=== PATIENT | female | born 1970 | race Caucasian/White ===

== ENCOUNTER 2019-10-15 00:28 | Outpatient (REF) | payer SELFPAY ==
[2019-10-15 00:55] LABS: Chol HDL Ratio 4.13 mg/dL (0.0-4.40); Cholesterol 256 mg/dL (0-200); Glucose 108 mg/dL (65-115); HDL Cholesterol 62 mg/dL (60-100); LDL Cholesterol Calculated 178 mg/dL (50-129); LDL HDL Ratio 2.87 RATIO (0.00-3.22); Triglycerides 78 mg/dL (0-150)
[2019-10-15 03:14] LABS: Estmated Average Glucose 140; Hemoglobin A1C 6.5 % (4.0-6.0)
== END 2019-10-15 00:29 | disposition home or self-care (01) ==
LOC: LAB 00:28
DX: Z01.89 Encounter for other specified special examinations (principal)
CPT/HCPCS: 36415; 80061; 82947; 83036

== ENCOUNTER 2022-04-12 05:24 | Emergency (ER) | payer OTHER, SELFPAY ==
[2022-04-12 05:40] VITALS: BP 154/79; PULSE 80; RESP 16; TEMP 37.3; O2SAT 99
--- NOTE | 2022-04-12 05:53 | W.ED.EXTPRO ---
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 Associated symptoms: Deny chest pain, fever(s) or rash Review of Systems Const: Denies: fever(s), chills, body aches or change in appetite Eyes: Denies: blurry vision or eye discomfort ENMT: Denies: throat pain or dental pain Card: Denies: chest pain Resp: Denies: dyspnea GI: Denies: abdominal pain, nausea, vomiting or diarrhea : Denies: dysuria Musc: Reports: extremity pain; Denies: neck pain or back pain Skin/Breast: Denies: rash Neuro: Denies: headache(s) Psych: Denies: depression [place]/Lymph: Denies: easy bruising All/Imm: Denies: urticaria PFSH ED PFSH: Medical History No pertinent past medical history Social History (Updated 04/12/22 @ 06:52 by Angelo Dallas MD) Substance/Drug Use: never Physical Exam Const: COMMON NORMALS: no acute distress and patient oriented x3 HENMT: COMMON NORMALS: normocephalic HEAD & SCALP: normocephalic Eye: COMMON NORMALS: conjunctivae normal CONJUNCTIVA: Yes conjunctivae normal Neck/C-Spine: COMMON NORMALS: supple Chest: COMMONS NORMALS: normal inspection of the chest Resp: COMMON NORMALS: normal respiratory effort Cardio: COMMON NORMALS: regular rate RATE: regular rate GI: INSPECTION: Yes normal to inspection Extremity: OTHER: Some tenderness along right calf no swelling Achilles tendons intact Neuro: COMMON NORMALS: patient oriented x3 Psych: COMMON NORMALS: mental status grossly normal Skin: COMMON NORMALS: no rashes or lesions noted GENERAL SKIN EXAM: no rashes or lesions noted Course Vital Signs: Vital signs: Vital Signs Temperature 99.1 F 04/12/22 05:40 Pulse Rate 80 04/12/22 05:40 Respiratory Rate 16 04/12/22 05:40 Blood Pressure 154/79 04/12/22 05:40 Pulse Oximetry 99 04/12/22 05:40 Oxygen Delivery Me thod 04/12/22 05:40 MDM - Extremity (Nontraumatic) Medical Decision Making Patient presents with a likely calf strain will use Celso wrap she is to follow-up with orthopedics. Discharge Plan Discharge Patient Disposition: Home Clinical Impression: Strain of right calf muscle Condition: Stable Prescriptions: New Naprosyn 500 mg tablet 500 mg PO BID PRN (Reason: pain) Qty: 20 0RF Discharge Orders: Discharge ED (Routine); Ordered 04/12/22 Ordered By: Angelo Dallas Referrals: Joby Joyner MD [Physician] - 1-3 days Discharge Diet: Advance as tolerated Discharge Activity: Resume usual activity Patient Instructions: Leg Pain (ED) Coding Level of Care Code ED Consulting Intern for Nigel Schmitt
[2022-04-12] MEDS: naproxen 500 mg Tablet PO (06:01)
--- NOTE | 2022-04-14 10:29 | DCPLANNER ---
Addendum entered by Yesica Le 04/24/22 16:19: clerical manager received the following message from the front office staff at ortho regarding follow up appointment: Left a vm for DIEGO LAWRENCE to verify we are ok to schedule. We will reach out to patient once we get approval Original Note: clerical manager had message to schedule a follow up appointment for patient with ortho. clerical manager sent patients information to the front office staff at ortho. Patients information will be printed and reviewed. Clinic will call patient with appointment information.
== END 2022-04-12 06:07 | disposition home or self-care (01) ==
PROVIDERS: Emergency Provider Emergency Medicine
DX: S86.111A Strain of other muscle(s) and tendon(s) of posterior muscle group at lower leg level, right leg, initial encounter (principal); X50.9XXA Other and unspecified overexertion or strenuous movements or postures, initial encounter; Y92.239 Unspecified place in hospital as the place of occurrence of the external cause; Y99.0 Civilian activity done for income or pay
CPT/HCPCS: 99283